=== PATIENT | male | born 1990 | race American Indian/Alaskan Native ===

== ENCOUNTER 2017-04-27 19:31 | Emergency (ER) | payer SELFPAY ==
[2017-04-27 21:16] LABS: Bilirubin,Urine NEG (Negative); Blood,Urine NEG (Negative); Ketones,Urine NEG (Negative); Leukocyte Esterase,Urine LG (Negative); Mucus,Urine 3+ /HPF; Nitrite,Urine NEG (Negative); Urobilinogen,Urine < 2.0 mg/dL (<2.0)
--- NOTE | 2017-04-27 21:57 | Emergency Department Report ---
HPI <SHANNANPATTI FARLEY - Last Filed: 04/28/17 00:23> - HPI HPI: 26-year-old male presents today complaining of painful urination times one day. Admits to white to green discharge. Patient admits to having unprotected sex with one partner. Partner's sexual history unknown. Patient has had chlamydia in the past and has been treated. Denies blood in urine, increased urinary frequency or urgency. Denies rash or lesions in the genital area. Denies fever , chills, nausea, vomiting, chest pain, shortness of breath, abdominal pain. <MEKHI DONOVAN - Last Filed: 04/29/17 11:20> - General Chief Complaint: Urogenital-Male Time Seen by Provider: 04/27/17 21:39 ED Past Medical Hx <SHANNANPATTI FARLEY - Last Filed: 04/28/17 00:23> - Past Medical History Previous Medical History?: Yes Hx Hypertension: Yes - Surgical History Past Surgical History?: No - Social History Smoking Status: Former Smoker Substance Use Type: None <MEKHI DONOVAN - Last Filed: 04/29/17 11:20> - Medications Home Medications: Home Medications Medication Instructions Recorded Confirmed Last Taken Type Sulfamethoxazole/Trimethoprim 1 each PO BID #10 tablet 04/27/17 Unknown Rx [Bactrim DS TAB] ED Review of Systems ROS: Stated complaint: URINE PROBLEMS Other details as noted in HPI <SHANNANPATTI FARLEY - Last Filed: 04/28/17 00:23> ROS: Stated complaint: URINE PROBLEMS Other details as noted in HPI Constitutional: denies: chills, fever, malaise Eyes: denies: eye pain ENT: denies: ear pain, throat pain, congestion Respiratory: denies: cough, shortness of breath, wheezing Cardiovascular: denies: chest pain, palpitations Endocrine: no symptoms reported Gastrointestinal: denies: abdominal pain, nausea, vomiting Genitourinary: dysuria, discharge. denies: urgency, frequency, hematuria, testicular pain, testicular mass Skin: denies: rash, lesions Neurological: denies: headache, weakness <MEKHI DONOVAN - Last Filed: 04/29/17 11:20> Physical Exam - Physical Exam Vital Signs: Vital Signs 04/27/17 04/27/17 04/27/17 20:04 22:04 22:25 Temperature 98.4 F 98.2 F Pulse Rate 62 61 61 Respiratory 20 18 Rate Blood Pressure 169/114 175/110 Blood Pressure 175/110 [Left] O2 Sat by Pulse 99 100 Oximetry 04/28/17 00:13 Temperature Pulse Rate 72 Respiratory Rate Blood Pressure 177/118 Blood Pressure [Left] O2 Sat by Pulse Oximetry <PATTI CAMPBELL - Last Filed: 04/28/17 00:23> - Physical Exam Vital Signs: Vital Signs 04/27/17 20:04 Temperature 98.4 F Pulse Rate 62 Respiratory 20 Rate Blood Pressure 169/114 O2 Sat by Pulse 99 Oximetry Physical Exam: GENERAL: The patient is well-developed and well-nourished. Patient is in NAD. HEAD: Normocephalic. Atraumatic. NECK: Supple, nontender, without lymphadenopathy. No meningitic signs are noted. CHEST/LUNGS: Clear to auscultation throughout. HEART/CARDIOVASCULAR: Regular rate and rhythm. No murmurs, rubs or gallops. ABDOMEN: Abdomen is soft, nontender. Bowel sounds normoactive. No guarding or rebound tenderness. No CVA tenderness to palpation. MALE GENITAL: Offered but patient refused. EXTREMITIES: No cyanosis, clubbing or edema. Peripheral pulses intact. Capillary refill less than 2 seconds. NEURO: Alert and oriented x 3. Normal gait. <MEKHI DONOVAN - Last Filed: 04/29/17 11:20> ED Course Vital Signs 04/27/17 04/27/17 04/27/17 20:04 22:04 22:25 Temperature 98.4 F 98.2 F Pulse Rate 62 61 61 Respiratory 20 18 Rate Blood Pressure 169/114 175/110 Blood Pressure 175/110 [Left] O2 Sat by Pulse 99 100 Oximetry 04/28/17 00:13 Temperature Pulse Rate 72 Respiratory Rate Blood Pressure 177/118 Blood Pressure [Left] O2 Sat by Pulse Oximetry Vital Signs 04/27/17 04/27/17 04/27/17 20:04 22:04 22:25 Temperature 98.4 F 98.2 F Pulse Rate 62 61 61 Respiratory 20 18 Rate Blood Pressure 169/114 175/110 Blood Pressure 175/110 [Left] O2 Sat by Pulse 99 100 Oximetry 04/28/17 04/28/17 00:13 01:10 Temperature Pulse Rate 72 Respiratory Rate Blood Pressure 177/118 Blood Pressure 162/105 [Left] O2 Sat by Pulse Oximetry - Reevaluation(s) Reevaluation #1: 04/28/17 00:23 Patient's blood pressure was rechecked and was still elevated therefore he was given additional 0.1 of clonidine. He remained asymptomatic with elevated blood pressure. Patient was instructed that blood pressure will be taken again. He received a total of 0.2 clonidine while in emergency room. Patient blood pressure 190 162/105 and he remained asymptomatic in the emergency room. I discussed with him that he needs to take his blood pressure medication when he gets home. I also discussed with him that he needs to keep a log of his blood pressure and take to his primary care doctor visit with him for evaluation and possible adjustment of current blood pressure medication. Patient voiced understanding. <PATTI CAMPBELL - Last Filed: 04/28/17 00:23> Vital Signs 04/27/17 20:04 Temperature 98.4 F Pulse Rate 62 Respiratory 20 Rate Blood Pressure 169/114 O2 Sat by Pulse 99 Oximetry <MEKHI DONOVAN - Last Filed: 04/29/17 11:20> ED Medical Decision Making - Lab Data Vital Signs 04/27/17 04/27/17 04/27/17 20:04 22:04 22:25 Temperature 98.4 F 98.2 F Pulse Rate 62 61 61 Respiratory 20 18 Rate Blood Pressure 169/114 175/110 Blood Pressure 175/110 [Left] O2 Sat by Pulse 99 100 Oximetry 04/28/17 04/28/17 00:13 01:10 Temperature Pulse Rate 72 Respiratory Rate Blood Pressure 177/118 Blood Pressure 162/105 [Left] O2 Sat by Pulse Oximetry - Medical Decision Making A 6-year-old male presents today complaining of dysuria and penile discharge. His urinalysis revealed large leukocyte esterase and elevated urine WBC. Patient has been treated with Rocephin and azithromycin. Patient is in no acute distress at this time. He will be discharged home and is encouraged to follow up with a primary care provider. He will be sent home on Bactrim and is encouraged to return to the emergency room for any worsening symptoms. Patient also has a history of hypertension and did not take his blood pressure medication today. Patient is currently asymptomatic. He has been given clonidine 0.1 mg. Emphasized the importance of follow up with primary care physician and explained to patient that uncontrolled hypertension can lead to long-term complications of hypertension/elevated blood pressure including stroke , heart attack, disability, , paralysis, permanent loss of quality of life. Patient expressed understanding. <MEKHI DONOVAN - Last Filed: 04/29/17 11:20> Critical care attestation.: If time is entered above; I have spent that time in minutes in the direct care of this critically ill patient, excluding procedure time. <SHANNANPATTI Banks - Last Filed: 04/28/17 00:23> Critical care attestation.: If time is entered above; I have spent that time in minutes in the direct care of this critically ill patient, excluding procedure time. <MEKHI DONOVAN - Last Filed: 04/29/17 11:20> ED Disposition <PATTI CAMPBELL - Last Filed: 04/28/17 00:23> Is pt being admited?: No Does the pt Need Aspirin: No <MEKHI DONOVAN - Last Filed: 04/29/17 11:20> Clinical Impression: Penile discharge HTN (hypertension) Qualifiers: Hypertension type: essential hypertension Qualified Code(s): I10 - Essential ( primary) hypertension UTI (urinary tract infection) Qualifiers: Urinary tract infection type: acute cystitis Hematuria presence: without hematuria Qualified Code(s): N30.00 - Acute cystitis without hematuria Disposition: Z ELOPED Condition: Stable Instructions: Chlamydia Infection (ED), Gonococcal Urethritis (ED), Urinary Tract Infection in Men (ED), Hypertension (ED) Additional Instructions: Monitor blood pressure closely. Take blood pressure medication as prescribed. Follow-up with primary care provider. Return to the emergency department if symptoms worsen. Prescriptions: Sulfamethoxazole/Trimethoprim [Bactrim DS TAB] 1 each PO BID #10 tablet Referrals: PRIMARY CARE, [Primary Care Provider] - 3-5 Days [facility] [Outside] - 3-5 Days Forms: Work/School Release Form(ED)
[2017-04-27] MEDS ORDERED: XYLOCAINE 1% MPF 5 mL INFILTRATI ONE (22:09)
[2017-04-27] MEDS ORDERED: ROCEPHIN IM ONE (22:09)
[2017-04-27] MEDS ORDERED: ZITHROMAX PO ONE (22:09)
[2017-04-27] MEDS ORDERED: CATAPRES PO ONE (22:09)
[2017-04-28] MEDS ORDERED: CATAPRES PO ONE
[2017-04-28 01:11] VITALS: BP 162/105
== END 2017-04-28 01:30 | disposition left against medical advice (07) ==
LOC: ED 19:31
DX: N30.00 Acute cystitis without hematuria (principal); I10 Essential (primary) hypertension; Z87.891 Personal history of nicotine dependence; Z88.0 Allergy status to penicillin
CPT/HCPCS: 81001; 87591; 96372; 99283; J0696